=== PATIENT | female | born 1995 | race Caucasian/White ===

== ENCOUNTER 2017-06-14 00:06 | Emergency (ER) | payer BC ==
[~2017-06-14] VITALS: Ht 154.9 cm; Wt 61.2 kg
[2017-06-14] MEDS ORDERED: LORazepam 2 MG/ML VIAL IV ONE (01:15)
[2017-06-14] MEDS ORDERED: IV NORMAL SALINE 1,000ML 1,000 ML IV SCH (01:15)
[2017-06-14 02:03] LABS: BASO % 0 % (0-3); EOS # 0.1 x10^3/uL (0.0-0.7); EOS % 2 % (0-3); HEMATOCRIT 37.4 % (36.0-47.0); HEMOGLOBIN 12.9 g/dL (12.0-15.5); LYMPH # 2.1 x10^3/uL (1.0-4.8); LYMPH % 33 % (24-48); MEAN CORPUSCULAR HEMOGLOBIN 29 pg (25-35); MEAN CORPUSCULAR HGB CONC 34 g/dL (31-37); MEAN CORPUSCULAR VOLUME 84 fL (79-100); MONO # 0.4 x10^3/uL (0.0-1.1); MONO % 6 % (0-9); NEUT # 3.7 x10^3uL (1.8-7.7); NEUT % 58 % (31-73); PLATELET COUNT 197 x10^3/uL (140-400); RED BLOOD COUNT 4.47 x10^6/uL (3.50-5.40); RED CELL DISTRIBUTION WIDTH 14.9 % (11.5-14.5); WHITE BLOOD COUNT 6.3 x10^3/uL (4.0-11.0)
[2017-06-14 02:15] LABS: ALBUMIN 3.8 g/dL (3.4-5.0); ALBUMIN/GLOBULIN RATIO 1.1 (1.0-1.7); CALCIUM 8.8 mg/dL (8.5-10.1); CREATININE 0.8 mg/dL (0.6-1.0); GFR 88.1; MAGNESIUM 1.8 mg/dL (1.8-2.4); POTASSIUM 3.8 mmol/L (3.5-5.1); TOTAL BILIRUBIN 0.2 mg/dL (0.2-1.0); TOTAL PROTEIN 7.4 g/dL (6.4-8.2)
[2017-06-14 02:21] VITALS: BP 105/63
[2017-06-14] MEDS ORDERED: FAMO-63 PO (03:37)
--- NOTE | 2017-06-14 03:38 | PHYS DOC ---
Past History Past Medical History: Anxiety, Depression Past Surgical History: Alcohol Use: None Drug Use: None Adult General Chief Complaint Chief Complaint: CHEST PAIN HPI HPI Patient is a 22 year old female who presents with complaint of chest pain. Patient states that she has been having pains off and on throughout the day but started having persistent pain approximately 1 hour prior to arrival. Patient states that the pain is pressure-like and in the middle of her chest. Patient rates her pain as 6 out of 10. Patient has had associated nausea with her symptoms. Patient denies any significant past medical history. The patient states that she is currently breast-feeding. Patient does admit to history of anxiety and is currently on sertraline therapy. Patient has had no recent medication changes. Patient denies dyspnea on exertion and denies any upper abdominal pain. Patient has not taken any medications to help with symptoms. Review of Systems Review of Systems Constitutional: Denies fever or chills [] Eyes: Denies change in visual acuity, redness, or eye pain [] HENT: Denies nasal congestion or sore throat [] Respiratory: Denies cough or shortness of breath [] Cardiovascular: Chest pain, [] GI: Nausea, denies abdominal pain, vomiting, bloody stools or diarrhea [] : Denies dysuria or hematuria [] Musculoskeletal: Denies back pain or joint pain [] Integument: Denies rash or skin lesions [] Neurologic: Denies headache, focal weakness or sensory changes [] Current Medications Current Medications Current Medications Medications (Trade) Dose Ordered Sig/Katina Start Time Stop Time Status Last Admin Dose Admin Lorazepam (Ativan) 1 mg 1X ONCE 06/14/17 01:15 06/14/17 01:16 DC 06/14/17 01:15 1 MG Sodium Chloride 1,000 ml @ 1,000 mls/hr Q1H 06/14/17 01:15 06/14/17 02:14 DC 06/14/17 01:15 1,000 MLS/HR Allergies Allergies Allergies Coded Allergies Type Severity Reaction Last Updated Verified No Known Drug Allergies 06/14/17 No Physical Exam Physical Exam Constitutional: Well developed, well nourished, no acute distress, vital signs stable, non-toxic appearance. [] HENT: Normocephalic, atraumatic, bilateral external ears normal, oropharynx moist, no oral exudates, nose normal. [] Eyes: PERRLA, EOMI, conjunctiva normal, no discharge. [] Neck: Normal range of motion, no tenderness, supple, no stridor. [] Cardiovascular:Heart rate regular rhythm, no murmur [] Lungs & Thorax: Bilateral breath sounds clear to auscultation [] Abdomen: Bowel sounds normal, soft, no tenderness, no Marques sign, no masses, no pulsatile masses. [] Skin: Warm, dry, no erythema, no rash. [] Back: No tenderness, no CVA tenderness. [] Extremities: No tenderness, no cyanosis, no clubbing, ROM intact, no edema. [] Neurologic: Alert and oriented X 3, normal motor function, normal sensory function, no focal deficits noted. [] Current Patient Data Vital Signs Vital Signs Date Time Temp Pulse Resp B/P (MAP) Pulse Ox O2 Delivery O2 Flow Rate FiO2 06/14/17 02:21 68 14 105/63 (77) 97 Room Air 06/14/17 00:33 97.9 Lab Results Laboratory Tests Test 06/14/17 01:09 06/14/17 02:15 White Blood Count 6.3 x10^3/uL (4.0-11.0) Red Blood Count 4.47 x10^6/uL (3.50-5.40) Hemoglobin 12.9 g/dL (12.0-15.5) Hematocrit 37.4 % (36.0-47.0) Mean Corpuscular Volume 84 fL (79-100) Mean Corpuscular Hemoglobin 29 pg (25-35) Mean Corpuscular Hemoglobin Concent 34 g/dL (31-37) Red Cell Distribution Width 14.9 % (11.5-14.5) H Platelet Count 197 x10^3/uL (140-400) Neutrophils (%) (Auto) 58 % (31-73) Lymphocytes (%) (Auto) 33 % (24-48) Monocytes (%) (Auto) 6 % (0-9) Eosinophils (%) (Auto) 2 % (0-3) Basophils (%) (Auto) 0 % (0-3) Neutrophils # (Auto) 3.7 x10^3uL (1.8-7.7) Lymphocytes # (Auto) 2.1 x10^3/uL (1.0-4.8) Monocytes # (Auto) 0.4 x10^3/uL (0.0-1.1) Eosinophils # (Auto) 0.1 x10^3/uL (0.0-0.7) Basophils # (Auto) 0.0 x10^3/uL (0.0-0.2) Sodium Level 142 mmol/L (136-145) Potassium Level 3.8 mmol/L (3.5-5.1) Chloride Level 106 mmol/L (98-107) Carbon Dioxide Level 27 mmol/L (21-32) Anion Gap 9 (6-14) Blood Urea Nitrogen 16 mg/dL (7-20) Creatinine 0.8 mg/dL (0.6-1.0) Estimated GFR (Cockcroft-Gault) 88.1 BUN/Creatinine Ratio 20 (6-20) Glucose Level 89 mg/dL (70-99) Calcium Level 8.8 mg/dL (8.5-10.1) Magnesium Level 1.8 mg/dL (1.8-2.4) Total Bilirubin 0.2 mg/dL (0.2-1.0) Aspartate Amino Transferase (AST) 142 U/L (15-37) H Alanine Aminotransferase (ALT) 63 U/L (14-59) H Alkaline Phosphatase 79 U/L (46-116) Troponin I Quantitative < 0.017 ng/mL (0-0.055) Total Protein 7.4 g/dL (6.4-8.2) Albumin 3.8 g/dL (3.4-5.0) Albumin/Globulin Ratio 1.1 (1.0-1.7) Lipase 197 U/L (73-393) D-Dimer (Flor) < 0.19 mg/L (0.00-0.50) EKG EKG Interpreted by me: Heart rate 62, sinus rhythm, normal intervals, normal axis, no acute ST/T-wave abnormalities present [] Radiology/Procedures Radiology/Procedures One view AP chest x-ray interpreted by me: No infiltrate, no effusions, normal cardiac silhouette [] Course & Med Decision Making Course & Med Decision Making Pertinent Labs and Imaging studies reviewed. (See chart for details) Patient was given IV fluids and Ativan in the emergency department with improvement in symptoms. MADISON score is 0. Patient's chest x-ray was unremarkable and patient's blood work shows no acute evidence of myocardial ischemia or thrombosis. I suspect that the patient's source of discomfort may be GI related. The patient will be treated as outpatient with Pepcid. Advised follow-up in 2-3 days with primary doctor and return to the emergency department for any worsening symptoms. Patient voiced understanding and in agreement with treatment plan. Dragon Disclaimer Dragon Disclaimer This chart was dictated in whole or in part using Voice Recognition software in a busy, high-work load, and often noisy Emergency Department environment. It may contain unintended and wholly unrecognized errors or omissions. Departure Departure: Impression: Primary Impression: Atypical chest pain Disposition: HOME, SELF-CARE Condition: IMPROVED Referrals: EMEKA FLORES MD (PCP) Patient Instructions: Chest Pain (Nonspecific) Additional Instructions: Follow-up in 2 days with your primary doctor for reevaluation. Return to the emergency department for any worsening symptoms. Scripts Famotidine (PEPCID) 20 Mg Tablet 1 TAB PO BID, #30 TAB 0 Refills Prov: DOMINIC GARCIA MD 06/14/17 DOMINIC GARCIA MD Jun 14, 2017 03:37
--- NOTE | 2017-06-14 05:30 | EKG ---
[address] [address] Test Date: 2017-06-14 Test Time: 00:17:32 Pat Name: ELVER BROWN Department: Room: Gender: F Dye Worker: JOHNNIE : 1995 Requested By: DOMINIC GARCIA Order Number: [id number] Reading MD: Magdi Wilson Measurements Intervals [place] Rate: 62 P: 28 RI: 156 QRS: 28 QRSD: 82 T: 26 QT: 410 QTc: 418 Interpretive Statements SINUS RHYTHM Electronically Signed On 06-14-2017 8:12:39 CDT by Magdi Wilson
--- NOTE | 2017-06-14 07:25 | RAD ---
Portable chest, 06/14/2017: History: Chest pain, shortness of breath The heart size and pulmonary vascularity are normal. The lungs are clear. There is no evidence of pleural fluid. IMPRESSION: No acute cardiopulmonary abnormality is detected.
== END 2017-06-14 03:52 | disposition home or self-care (01) ==
LOC: ER 00:06
DX: R07.89 Other chest pain (principal); F41.9 Anxiety disorder, unspecified
CPT/HCPCS: 36415; 71010; 80053; 83690; 83735; 84484; 85027; 85379; 93005; 96361; 96374; 99285; J2060; J7030

== ENCOUNTER 2018-01-31 09:17 | Emergency (ER) | payer BC ==
[~2018-01-31] VITALS: Ht 154.9 cm; Wt 55.8 kg
[~2018-01-31 09:17] MED LIST: FAMO-63 PO
[2018-01-31] MEDS ORDERED: ONDANSETRON PF 4 MG/2 ML VIAL. IV ONE (09:30)
[2018-01-31] MEDS ORDERED: IV NORMAL SALINE 1,000ML 1,000 ML IV SCH (09:30)
--- NOTE | 2018-01-31 09:43 | PHYS DOC ---
Past History Past Medical History: Endometriosis Past Surgical History: No Surgical History Alcohol Use: None Drug Use: None Adult General Chief Complaint Chief Complaint: nausea HPI HPI This is a pleasant 22-year-old female with history of endometriosis who is presenting to the emergency department today with nausea and vomiting in . She reports she is partially 7 weeks by her son which was performed which confirmed IUP. She does not have documented record of this today with her. Her automotive light mechanic is at [facility]. Her vomitus is nonbilious and nonbloody. She has a history of hyperemesis gravidarum. She has had 2 C-sections and 2 exploratory laparotomies for endometriosis. She reports having flatus today. She had a bowel movement on Wednesday. She denies any polyuria or dysuria. She denies any abdominal pain or vaginal bleeding. Surgeries: and exploratory laparotomies as above Past medical history: Hyperemesis and endometriosis Allergies: None Social history: Denies drinking looking or IV drug use. Review of systems is negative for chest pain shortness of breath fevers chills. She denies polyuria or dysuria. All other review of systems is negative unless otherwise noted in history of present illness. ED course: 22-year-old female presenting to the emergency department today with nausea and vomiting in . Upon arrival the patient is well-appearing, nontoxic appearing. Pulse within normal limits. Blood pressure within normal limits. Afebrile. Abdomen is soft nondistended nontender to palpation. Bowel sounds present. No rebound tenderness or guarding. No masses. No hernias palpable. The remainder the exam is unremarkable. IV established. IV fluids and nausea medications administered. basic blood work along with urinalysis ordered. After 2 L of fluids along with Zofran and Reglan, on reexamination the patient is feeling much better. She desires to be discharged home. She has a follow-up with her automotive light mechanic [facility] on Wednesday. The patient was then discharged home in stable condition. They were to return if their symptoms worsened or if they were concerned for any reason. [id number] discharge instructions and return precautions were given. Patient's questions were answered to their satisfaction. Patient is comfortable with plan. Review of Systems Review of Systems SEE ABOVE. Current Medications Current Medications Current Medications Medications (Trade) Dose Ordered Sig/Katina Start Time Stop Time Status Last Admin Dose Admin Ondansetron HCl (Zofran) 4 mg 1X ONCE 01/31/18 09:30 01/31/18 09:34 DC Sodium Chloride 1,000 ml @ 1,000 mls/hr Q1H 01/31/18 09:30 01/31/18 10:29 Allergies Allergies Allergies Coded Allergies Type Severity Reaction Last Updated Verified No Known Drug Allergies 01/31/18 No Physical Exam Physical Exam SEE ABOVE Constitutional: Well developed, well nourished, no acute distress, non-toxic appearance. [] HENT: Normocephalic, atraumatic, bilateral external ears normal, oropharynx moist, no oral exudates, nose normal. [] Eyes: PERRLA, EOMI, conjunctiva normal, no discharge. [] Neck: Normal range of motion, no tenderness, supple, no stridor. [] Cardiovascular:Heart rate regular rhythm, no murmur [] Lungs & Thorax: Bilateral breath sounds clear to auscultation [] Abdomen: Bowel sounds normal, soft, no tenderness, no masses, no pulsatile masses. [] Skin: Warm, dry, no erythema, no rash. [] Back: No tenderness, no CVA tenderness. [] Extremities: No tenderness, no cyanosis, no clubbing, ROM intact, no edema. [] Neurologic: Alert and oriented X 3, normal motor function, normal sensory function, no focal deficits noted. [] Psychologic: Affect normal, judgement normal, mood normal. [] Current Patient Data Vital Signs Vital Signs Date Time Temp Pulse Resp B/P (MAP) Pulse Ox O2 Delivery O2 Flow Rate FiO2 01/31/18 09:31 97.9 75 18 100 Room Air EKG EKG [] Radiology/Procedures Radiology/Procedures [] Course & Med Decision Making Course & Med Decision Making Pertinent Labs and Imaging studies reviewed. (See chart for details) [] Dragon Disclaimer Dragon Disclaimer This electronic medical record was generated, in whole or in part, using a voice recognition dictation system. Departure Departure: Impression: Primary Impression: Nausea and vomiting during Disposition: HOME, SELF-CARE Condition: STABLE Referrals: EMEKA FLORES MD (PCP) Patient Instructions: Nausea and Vomiting Additional Instructions: Thank you for allowing us to participate in your care today. Followup with your OB on Wednesday. Call your Primary Doctor tomorrow and inform them of your visit today. If you do not have a primary care provider you can ask for a list of our primary care providers. Return to the emergency department you have any new or concerning findings. This should be evaluated by the primary care physician and any necessary consulting services for continued management within a few days after discharge. Return to emergency room if you have any new or concerning symptoms including but not limited to fever, chills, nausea, vomiting, intractable pain, any new rashes, chest pain, shortness of air, uncontrolled bleeding, difficulty breathing, and/or vision loss. Scripts Metoclopramide Hcl (REGLAN) 10 Mg Tablet 1 TAB PO PRN BID Y for NAUSEA/VOMITING, #3 TAB 0 Refills Prov: LAZARUS REICH MD 01/31/18 LAZARUS REICH MD Jan 31, 2018 09:43
[2018-01-31 10:04] LABS: BASO % 0 % (0-3); EOS # 0.1 x10^3/uL (0.0-0.7); EOS % 1 % (0-3); HEMATOCRIT 40.7 % (36.0-47.0); HEMOGLOBIN 14.2 g/dL (12.0-15.5); LYMPH # 1.8 x10^3/uL (1.0-4.8); LYMPH % 21 % (24-48); MEAN CORPUSCULAR HEMOGLOBIN 30 pg (25-35); MEAN CORPUSCULAR HGB CONC 35 g/dL (31-37); MEAN CORPUSCULAR VOLUME 86 fL (79-100); MONO # 0.4 x10^3/uL (0.0-1.1); MONO % 5 % (0-9); NEUT # 6.2 x10^3uL (1.8-7.7); NEUT % 73 % (31-73); PLATELET COUNT 215 x10^3/uL (140-400); RED BLOOD COUNT 4.72 x10^6/uL (3.50-5.40); RED CELL DISTRIBUTION WIDTH 13.3 % (11.5-14.5); WHITE BLOOD COUNT 8.5 x10^3/uL (4.0-11.0)
[2018-01-31] MEDS ORDERED: IV NORMAL SALINE 1,000ML 1,000 ML IV ONE (10:15)
[2018-01-31 10:18] LABS: ALBUMIN 4.1 g/dL (3.4-5.0); CALCIUM 9.4 mg/dL (8.5-10.1); CREATININE 0.6 mg/dL (0.6-1.0); DIRECT BILIRUBIN 0.1 mg/dL (0.0-0.2); GFR 122.8; POTASSIUM 3.8 mmol/L (3.5-5.1); TOTAL BILIRUBIN 0.3 mg/dL (0.2-1.0); TOTAL PROTEIN 7.8 g/dL (6.4-8.2)
[2018-01-31] MEDS ORDERED: METOCLOPRAMIDE HCL 10 MG/2 ML VIAL. IV ONE (10:45)
[2018-01-31] MEDS ORDERED: METOCLOPRAMIDE HCL 10 MG/2 ML VIAL. ONE (10:45)
[2018-01-31] MEDS ORDERED: METO10TA81 PO (11:29)
[2018-01-31 11:35] VITALS: BP 104/63
[2018-01-31 11:58] LABS: BACTERIA,URINE 0 /HPF (0-FEW); BILIRUBIN,URINE NEG (NEG); CLARITY,URINE HAZY; COLOR,URINE YELLOW; GLUCOSE,URINE NEG (NEG); NITRITE,URINE NEG (NEG); RBC,URINE 0 /HPF (0-2); SQUAMOUS EPITHELIAL CELL,UR FEW /LPF; UROBILINOGEN,URINE 0.2 mg/dL (0.2 mg/dL); WBC,URINE 0 /HPF (0-4)
== END 2018-01-31 12:16 | disposition home or self-care (01) ==
LOC: ER 09:17
DX: O21.9 Vomiting of pregnancy, unspecified (principal); Z3A.01 Less than 8 weeks gestation of pregnancy
CPT/HCPCS: 36415; 80048; 80076; 81001; 83690; 85025; 86901; 96361; 96374; 96375; 99284; J2405; J2765; J7030